=== PATIENT | female | born 1960 | race American Indian/Alaskan Native ===

== ENCOUNTER 2018-07-21 15:09 | Emergency (ER) | payer OTHER ==
--- NOTE | 2018-07-21 15:23 | Emergency Department Report ---
Blank Doc - Documentation Documentation: This is a 58-year-old female that presents with epigastric abdominal pain with n/v/d. Patient denies any radiation. Denies any other symptoms. This initial assessment/diagnostic orders/clinical plan/treatment(s) is/are subject to change based on patient's health status, clinical progression and re- assessment by fellow clinical providers in the ED. Further treatment and workup at subsequent clinical providers discretion. Patient/guardians urged not to elope from the ED as their condition may be serious if not clinically assessed and managed. Initial orders include: 1- Patient sent to [facility] for further evaluation and treatment 2- Labs 3- UA
[2018-07-21 15:24] VITALS: BP 149/97
[2018-07-21 15:37] LABS: Basophils % (Auto) 0.6 % (0.0-1.8); Eosinophils # (Auto) 0.1 K/mm3 (0.0-0.4); Eosinophils % (Auto) 1.1 % (0.0-4.3); Hematocrit 41.1 % (30.3-42.9); Hemoglobin 14.3 gm/dl (10.1-14.3); Lymphocytes # (Auto) 1.8 K/mm3 (1.2-5.4); Lymphocytes % (Auto) 36.7 % (13.4-35.0); Mean Corpuscular HGB Conc 35 % (30-34); Mean Corpuscular Volume 93 fl (79-97); Monocytes # (Auto) 0.3 K/mm3 (0.0-0.8); Monocytes % (Auto) 6.5 % (0.0-7.3); Platelet Count 204 K/mm3 (140-440); Red Blood Count 4.44 M/mm3 (3.65-5.03); Red Cell Distribution Width 13.6 % (13.2-15.2)
[2018-07-21 15:58] LABS: Alanine Aminotransferase 15 units/L (7-56); Albumin 4.2 g/dL (3.9-5); BUN/Creatinine Ratio 14; Blood Urea Nitrogen 11 mg/dL (7-17); Calcium 9.3 mg/dL (8.4-10.2); Hemolysis Index 8
[2018-07-21] MEDS ORDERED: LIDOCAINE VISCOUS 2% PO ONE (16:12)
[2018-07-21] MEDS ORDERED: ALUM-MAG HYDROX-SIMETH 200-200-20MG/5ML PO ONE (16:12)
--- NOTE | 2018-07-21 16:14 | Emergency Department Report ---
HPI - General Chief Complaint: Abdominal Pain Time Seen by Provider: 07/21/18 15:22 - HPI HPI: This is a 58-year-old female who presents to ED complaining of made epigastric abdominal burning sensation for the past couple days. Patient's insurance or primary care Ruth yesterday and was given some omeprazole. Patient states that she has had no relief and she is to fill in the same burning sensation she should continue to be evaluated. She denies nausea vomiting diarrhea, chest pain, shortness of breath. ED Past Medical Hx - Past Medical History Previous Medical History?: Yes Hx Hypertension: Yes - Surgical History Past Surgical History?: No - Social History Smoking Status: Current Every Day Smoker Substance Use Type: Alcohol - Medications Home Medications: Home Medications Medication Instructions Recorded Confirmed Last Taken Type Dicyclomine [Bentyl] 10 mg PO BID #30 capsule 07/21/18 Unknown Rx Famotidine [Pepcid] 40 mg PO QHS #30 tablet 07/21/18 Unknown Rx Mag Hydrox/Aluminum Hyd/Simeth 15 ml PO TID #1 bottle 07/21/18 Unknown Rx [Maalox Advanced Suspension] ED Review of Systems ROS: Stated complaint: ABD PAIN Other details as noted in HPI Comment: All other systems reviewed and negative Physical Exam - Physical Exam Vital Signs: Vital Signs 07/21/18 15:22 Temperature 98.1 F Pulse Rate 90 Respiratory 18 Rate Blood Pressure 149/97 O2 Sat by Pulse 96 Oximetry Physical Exam: GENERAL: Alert and oriented x3, no apparent distress, Normal Gait, atraumatic. LUNGS: Symetrical with respiration, No wheezing, no rales or crackles, CTAB. HEART: S1, S2 present, regular rate and rhythm without murmur, no rubs, no gallops. Non tender to palpation ABDOMEN: No organomegaly was noted,Positive bowel sounds, soft, and non- distended. . Nontender to palpation on all Quadrants, NO CVA tenderness. BACK: Full range of motion, no spinal tenderness, nontender to palpation. SKIN: Warm and dry, No lesions, No ulceration or induration present. ED Course Vital Signs 07/21/18 15:22 Temperature 98.1 F Pulse Rate 90 Respiratory 18 Rate Blood Pressure 149/97 O2 Sat by Pulse 96 Oximetry ED Medical Decision Making - Lab Data Result diagrams: 07/21/18 15:30 07/21/18 15:30 Temp Pulse Resp BP Pulse Ox 98.1 F 90 18 149/97 96 07/21/18 15:22 07/21/18 15:22 07/21/18 15:22 07/21/18 15:22 07/21/18 15:22 - Medical Decision Making 58-year-old female presents with epigastric pain most likely due to gastritis. Current medicines as versus units of follow-up with the surgical physician assistant. Patient is able to tolerate foods without any problems. GI cocktail given in ED. Patient tolerated. She reports feeling much much better and states the burning sensation is resolved after being medicated. Vital signs are normal she is in no acute distress. Critical care attestation.: If time is entered above; I have spent that time in minutes in the direct care of this critically ill patient, excluding procedure time. ED Disposition Clinical Impression: Gastritis Disposition: [id number] TO HOME OR SELFCARE Is pt being admited?: No Does the pt Need Aspirin: No Condition: Stable Instructions: Gastritis (ED), Gastroesophageal Reflux in Children (ED), Diet for Ulcers and Gastritis (ED), Abdominal Pain (ED) Additional Instructions: Make sure to follow up with the primary care physician as discussed. Take all your medications as you've been prescribed. If you have any worsening symptoms or develop new symptoms please return to ED immediately. Prescriptions: Famotidine [Pepcid] 40 mg PO QHS #30 tablet Dicyclomine [Bentyl] 10 mg PO BID #30 capsule Mag Hydrox/Aluminum Hyd/Simeth [Maalox Advanced Suspension] 15 ml PO TID #1 bottle Referrals: JESUS ALBERTO ABRAHAM MD [Primary Care Provider] - 3-5 Days [facility] [Provider Group] - 3-5 Days Forms: Accompanied Note, Work/School Release Form(ED)
[2018-07-21] MEDS ORDERED: BENTYL PO ONE (16:30)
[2018-07-21 17:07] LABS: Bacteria,Urine 1+ /HPF (Negative); Bilirubin,Urine NEG (Negative); Blood,Urine NEG (Negative); Color,Urine Colorless (Yellow); Protein,Urine <15 mg/dL mg/dL (Negative); RBC,Urine < 1.0 /HPF (0.0-6.0); Urobilinogen,Urine < 2.0 mg/dL (<2.0); WBC,Urine < 1.0 /HPF (0.0-6.0)
== END 2018-07-21 17:28 | disposition home or self-care (01) ==
LOC: ED 15:09
DX: K29.70 Gastritis, unspecified, without bleeding (principal); I10 Essential (primary) hypertension; F17.200 Nicotine dependence, unspecified, uncomplicated
CPT/HCPCS: 36415; 80053; 81001; 83690; 85025; 99283